=== PATIENT | female | born 1950 | race Caucasian/White ===

== ENCOUNTER 2022-10-31 15:20 | Inpatient (IN) ==
[2022-10-31] MEDS ORDERED: MORPHINE 2 MG/1 ML SYRINGE IV STA ×2 (16:49→17:53)
[2022-10-31] MEDS ORDERED: ONDANSETRON 4 MG/2 ML VIAL IV STA (16:49)
[2022-10-31 17:05] LABS: Basophils # 0.1 10*3/uL (0.0-0.2); Basophils % 0.6 % (0.0-0.8); Eosinophils # 0.1 10*3/uL (0.0-0.87); Eosinophils % 0.5 % (0.00-10.9); Hematocrit 33.1 VOL% (35.7-47.0); Hemoglobin 10.9 GM/DL (12.0-16.0); Immature Granulocytes % 0.7 %; Immature Granulocytes Absolute 0.12 #; Lymphocytes # 1.2 10*3/uL (1.4-4.0); Mean Corpuscular HGB Conc 32.9 GM/DL (32-36); Mean Corpuscular Volume 93.8 FL (87-102); Mean Platelet Volume 8.8 FL (9.6-12.0); Monocytes # 1.1 10*3/uL (0.11-0.8); Monocytes % 6.4 % (1.7-12.7); Neutrophils % 84.8 % (38.7-73.9); Platelet Count 320 T/CUMM (130-400); Red Blood Count 3.53 MC/CUMM (3.8-5.5); Red Cell Distribution Width 13.1 % (9.3-17.3); White Blood Count 16.33 T/CUMM (4-12)
[2022-10-31 17:16] LABS: PT Patient Result 10.6 SECS (10.1-12.1)
[2022-10-31 17:21] LABS: Calcium 8.8 MG/DL (8.5-10.1); Osmolality,Calculated 270.2 MOS/KG (273-304); Potassium 4.3 MMOL/L (3.5-5.1)
[2022-10-31] MEDS ORDERED: SODIUM CHLORIDE 0.9% 1,000 ML IV STA (17:53)
[2022-10-31] MEDS ORDERED: ACETAMINOPHEN 325 MG TABLET PO PRN (19:57)
[2022-10-31] MEDS ORDERED: ONDANSETRON 4 MG/2 ML VIAL IV PRN (19:57)
[2022-10-31] MEDS ORDERED: hydrALAZINE 20 MG/1 ML VIAL IV PRN (20:01)
[2022-10-31 20:19] LABS: % Iron Saturation 24.6 % (18-50)
[2022-10-31 20:35] LABS: Folate 17.26 NG/ML (5.38-24.0)
[2022-10-31] MEDS: MORPHINE 2 MG/1 ML SYRINGE IV PRN (20:42)
[2022-10-31] MEDS: SODIUM CHLORIDE 0.9% 1,000 ML IV SCH (20:43)
[2022-10-31 21:09] LABS: Bilirubin,Urine Negative (Negative); Blood, Urine Negative (Negative); Glucose,Urine (UA) Negative (Negative); Ketones,Urine Negative (Negative); Nitrite,Urine Negative (Negative); Protein,Urine Negative (Negative); Urine Appearance Clear (Clear); Urine Color Yellow (Yellow); Urine Specific Gravity 1.015 (1.001-1.035); Urine Urobilinogen 0.2 eU/dL (<2.0)
[2022-10-31 21:11] LABS: Bacteria,Urine Occasional /HPF (Few); Hyaline Casts,Urine 1 /LPF (0-3); Mucus,Urine Occasional /LPF (Occasional); RBC,Urine 1 /HPF (0-4); Squamous Epithelial Cell,Urine Occasional /HPF (0-10)
[2022-10-31] MEDS: BUDESONIDE/FORMOTEROL 160-4.5 INHALER 6 GM INH SCH (22:12)
[2022-11-01] MEDS: MORPHINE 2 MG/1 ML SYRINGE IV PRN ×4 (01:01→21:37)
[2022-11-01] MEDS: ALBUTEROL/IPRATROPIUM 3 ML NEB RESP TX PRN (03:22)
[2022-11-01 05:16] LABS: Basophils # 0.1 10*3/uL (0.0-0.2); Basophils % 0.6 % (0.0-0.8); Eosinophils % 0.2 % (0.00-10.9); Hematocrit 28.4 VOL% (35.7-47.0); Hemoglobin 8.8 GM/DL (12.0-16.0); Immature Granulocytes % 0.7 %; Immature Granulocytes Absolute 0.07 #; Lymphocytes # 1.2 10*3/uL (1.4-4.0); Lymphocytes % 11.9 % (21.3-54.2); Mean Corpuscular Volume 98.3 FL (87-102); Mean Platelet Volume 9.2 FL (9.6-12.0); Monocytes # 1.5 10*3/uL (0.11-0.8); Monocytes % 14.4 % (1.7-12.7); Neutrophils % 72.2 % (38.7-73.9); Platelet Count 275 T/CUMM (130-400); Red Blood Count 2.89 MC/CUMM (3.8-5.5); Red Cell Distribution Width 13.5 % (9.3-17.3); White Blood Count 10.32 T/CUMM (4-12)
[2022-11-01 05:42] LABS: Albumin 2.9 G/DL (3.4-5.0); Bilirubin,Total 0.5 MG/DL (0.20-1.00); Calcium 8.2 MG/DL (8.5-10.1); Osmolality,Calculated 272.1 MOS/KG (273-304); Potassium 4.5 MMOL/L (3.5-5.1); Risk Ratio 1.64; Thyroid Stimulating Hormone 2.72 uIU/ml (0.358-3.74); Total Protein 6.4 G/DL (6.4-8.2); VLDL Cholesterol 10.2 MG/DL
[2022-11-01] MEDS ORDERED: ONDANSETRON 4 MG/2 ML VIAL ONE (06:57)
[2022-11-01] MEDS ORDERED: LIDOCAINE 2% 5 ML VIAL ONE (06:57)
[2022-11-01] MEDS ORDERED: ROCURONIUM 50 MG/5 ML VIAL IV ONE (06:57)
[2022-11-01] MEDS ORDERED: DEXAMETHASONE 4 MG/1 ML VIAL ONE ×3 (06:57→08:34)
[2022-11-01] MEDS ORDERED: fentaNYL 100 MCG/2 ML VIAL ONE (06:57)
[2022-11-01] MEDS ORDERED: SEVOFLURANE 1 UNIT/15 MINUTE INH ONE ×4 (06:57→08:47)
[2022-11-01] MEDS ORDERED: propofoL 200 MG/20 ML VIAL IV ONE (06:57)
[2022-11-01] MEDS ORDERED: IPRATROPIUM 500 MCG/2.5 ML NEB RESP TX ONE (07:07)
[2022-11-01] MEDS ORDERED: FAMOTIDINE 20 MG/2 ML VIAL IV ONE (07:07)
[2022-11-01] MEDS ORDERED: ROPIVACAINE 0.5% 30 ML VIAL ONE (07:31)
[2022-11-01] MEDS ORDERED: LIDOCAINE 1% 5 ML VIAL ONE (07:31)
[2022-11-01] MEDS ORDERED: MAGNESIUM SULF RIDER 2 GM/50 ML PREMIX IV ONE ×2 (07:54→17:30)
[2022-11-01] MEDS ORDERED: ePHEDrine 50 MG/ML VIAL ONE (08:00)
[2022-11-01] MEDS ORDERED: ceFAZolin 1,000 MG VIAL ONE (08:18)
[2022-11-01] MEDS ORDERED: ACETAMINOPHEN INJ 1,000 MG/100 ML VIAL IV ONE (08:35)
[2022-11-01] MEDS ORDERED: GLYCOPYRROLATE 0.4 MG/2 ML VIAL ONE (08:36)
[2022-11-01] MEDS ORDERED: PHENYLEPHRINE 1 MG/10 ML SYRINGE IV ONE ×2 (08:36→08:58)
[2022-11-01] MEDS ORDERED: MAGNESIUM SULF RIDER 4 GM/100 ML PREMIX IV ONE (08:36)
[2022-11-01] MEDS ORDERED: NEOSTIGMINE 10 MG/10 ML VIAL ONE (08:37)
[2022-11-01] MEDS ORDERED: LACTATED RINGERS 1,000 ML IV ONE (09:06)
[2022-11-01] MEDS ORDERED: MEPERIDINE 25 MG/1 ML VIAL IV PRN (09:33)
[2022-11-01] MEDS ORDERED: ONDANSETRON 4 MG/2 ML VIAL IV PRN (09:33)
[2022-11-01] MEDS: THEOPHYLLINE ER 300 MG TABLET PO SCH ×2 (10:41→16:30)
[2022-11-01] MEDS: FLUTICASONE 50 MCG NASAL SPRAY 16 GM BOTTLE BOTH NARES SCH (10:41)
[2022-11-01] MEDS: BUDESONIDE/FORMOTEROL 160-4.5 INHALER 6 GM INH SCH ×2 (10:41→20:32)
[2022-11-01] MEDS: PANTOPRAZOLE 40 MG TABLET PO SCH (10:41)
[2022-11-01] MEDS: ATORVASTATIN 20 MG TABLET PO SCH (10:41)
[2022-11-01] MEDS: SODIUM CHLORIDE 0.9% 1,000 ML IV SCH ×2 (18:17→20:33)
[2022-11-02 05:22] LABS: Basophils % 0.1 % (0.0-0.8); Hematocrit 21.9 VOL% (35.7-47.0); Hemoglobin 7.1 GM/DL (12.0-16.0); Immature Granulocytes % 0.7 %; Lymphocytes # 0.9 10*3/uL (1.4-4.0); Lymphocytes % 6.2 % (21.3-54.2); Mean Corpuscular HGB Conc 32.4 GM/DL (32-36); Mean Corpuscular Volume 95.2 FL (87-102); Mean Platelet Volume 9.3 FL (9.6-12.0); Monocytes # 1.6 10*3/uL (0.11-0.8); Platelet Count 248 T/CUMM (130-400); Red Cell Distribution Width 13.2 % (9.3-17.3); White Blood Count 14.04 T/CUMM (4-12)
[2022-11-02 05:37] LABS: Calcium 7.5 MG/DL (8.5-10.1); Osmolality,Calculated 268.4 MOS/KG (273-304); Potassium 3.9 MMOL/L (3.5-5.1)
[2022-11-02] MEDS: SODIUM CHLORIDE 0.9% 1,000 ML IV SCH ×2 (06:47→12:34)
[2022-11-02] MEDS: ATORVASTATIN 20 MG TABLET PO SCH (09:13)
[2022-11-02] MEDS: FLUTICASONE 50 MCG NASAL SPRAY 16 GM BOTTLE BOTH NARES SCH (09:13)
[2022-11-02] MEDS: THEOPHYLLINE ER 300 MG TABLET PO SCH ×2 (09:13→16:10)
[2022-11-02] MEDS: PANTOPRAZOLE 40 MG TABLET PO SCH (09:13)
[2022-11-02] MEDS: BUDESONIDE/FORMOTEROL 160-4.5 INHALER 6 GM INH SCH ×2 (09:14→20:26)
[2022-11-02] MEDS: ALBUTEROL/IPRATROPIUM 3 ML NEB RESP TX PRN (10:30)
[2022-11-02 11:51] LABS: Hemoglobin 7.4 GM/DL (12.0-16.0)
[2022-11-02] MEDS: MORPHINE 2 MG/1 ML SYRINGE IV PRN (16:45)
[2022-11-03 05:39] LABS: Calcium 7.7 MG/DL (8.5-10.1); Osmolality,Calculated 264.4 MOS/KG (273-304); Potassium 3.5 MMOL/L (3.5-5.1)
[2022-11-03 06:29] LABS: Basophils % 0.2 % (0.0-0.8); Hematocrit 19.7 VOL% (35.7-47.0); Hemoglobin 6.5 GM/DL (12.0-16.0); Immature Granulocytes % 0.6 %; Immature Granulocytes Absolute 0.07 #; Lymphocytes # 1.2 10*3/uL (1.4-4.0); Lymphocytes % 9.7 % (21.3-54.2); Mean Corpuscular Volume 95.2 FL (87-102); Mean Platelet Volume 8.8 FL (9.6-12.0); Monocytes # 1.8 10*3/uL (0.11-0.8); Monocytes % 14.8 % (1.7-12.7); Neutrophils % 74.7 % (38.7-73.9); Platelet Count 210 T/CUMM (130-400); Red Blood Count 2.07 MC/CUMM (3.8-5.5); Red Cell Distribution Width 13.2 % (9.3-17.3); White Blood Count 12.11 T/CUMM (4-12)
[2022-11-03] MEDS ORDERED: SODIUM CHLORIDE 0.9% 1,000 ML IV PRN (08:15)
[2022-11-03] MEDS: ATORVASTATIN 20 MG TABLET PO SCH (08:56)
[2022-11-03] MEDS: THEOPHYLLINE ER 300 MG TABLET PO SCH (08:56)
[2022-11-03] MEDS: PANTOPRAZOLE 40 MG TABLET PO SCH (08:56)
[2022-11-03] MEDS: BUDESONIDE/FORMOTEROL 160-4.5 INHALER 6 GM INH SCH (08:57)
[2022-11-03] MEDS: FLUTICASONE 50 MCG NASAL SPRAY 16 GM BOTTLE BOTH NARES SCH (08:57)
[2022-11-03] MEDS: ALBUTEROL/IPRATROPIUM 3 ML NEB RESP TX PRN (11:50)
[2022-11-03] MEDS: SODIUM CHLORIDE 0.9% 1,000 ML IV SCH (14:47)
[2022-11-03 15:24] VITALS: BP 133/67
== END 2022-11-03 16:48 | disposition home health service (06) | DRG 481 ==
LOC: EDUNIT# → N.ED 15:20 → N.EDINP 19:57 → SUATTDRO 19:57 → N.3E 20:27
PROVIDERS: ADMIT Family Medicine; ATTEND Internal Medicine